=== PATIENT | female | born 1960 | race Caucasian/White ===

== ENCOUNTER → 2017-09-22 | Outpatient (CLI) | payer BC ==
[~2017-09-22] MED LIST: LIPITOR40 MG PO; LO-DOSE ASPIRIN81 M2 PO; MICROZIDE12.5 M1 PO; PEPCID20 MG PO; XANAX0.5 MG PO
== END | disposition home or self-care (01) ==
LOC: CDC 08:11
DX: Z01.810 Encounter for preprocedural cardiovascular examination (principal)
CPT/HCPCS: 93000

== ENCOUNTER 2017-09-28 07:27 | Day surgery (SDC) | payer BC ==
[~2017-09-28] VITALS: Ht 177.8 cm; Wt 122.5 kg
[2017-09-28 07:49] VITALS: BP 144/85
[2017-09-28 11:18] VITALS: BP 155/86
[2017-09-28 11:55] VITALS: BP 156/88
== END 2017-09-28 11:55 | disposition home or self-care (01) ==
LOC: SDC
PROC: 0UBC7ZX Excision of Cervix, Via Natural or Artificial Opening, Diagnostic (ICD-10-PCS; principal; 2017-09-28)
PROC: 0UBG7ZX Excision of Vagina, Via Natural or Artificial Opening, Diagnostic (ICD-10-PCS; principal; 2017-09-28)
DX: D06.0 Carcinoma in situ of endocervix (principal); N84.2 Polyp of vagina; F17.200 Nicotine dependence, unspecified, uncomplicated; K21.9 Gastro-esophageal reflux disease without esophagitis; E78.5 Hyperlipidemia, unspecified; I10 Essential (primary) hypertension; F41.9 Anxiety disorder, unspecified; Z80.0 Family history of malignant neoplasm of digestive organs; Z79.82 Long term (current) use of aspirin
CPT/HCPCS: 88304; 88305; 88342 TC; J0690; J1100; J1885; J2405; J3010